=== PATIENT | female | born 1950 | race Caucasian/White ===

== ENCOUNTER 2021-02-16 12:30 | Outpatient (CLI) | payer MEDICARE, MEDICAID ==
[~2021-02-16] VITALS: Ht 154.9 cm; Wt 76.7 kg
[2021-02-16] MEDS ORDERED: ACET-1025 PO (13:27)
[2021-02-16] MEDS ORDERED: CALCIUM (13:27)
[2021-02-16] MEDS ORDERED: IBUP-24 PO (13:27)
[2021-02-16] MEDS ORDERED: MVI (13:27)
[2021-02-16] MEDS ORDERED: VITAMIN D3 (13:27)
[2021-02-16] MEDS ORDERED: OMEP-50 PO (13:27)
[2021-02-16] MEDS ORDERED: SIMV-42 PO (13:27)
[2021-02-16] MEDS ORDERED: METF-950 PO (13:27)
[2021-02-16] MEDS ORDERED: LOVA40TA2 PO (13:38)
[2021-02-16 14:34] LABS: BASOPHILS # (AUTO) 0.1 X10'3 (0-0.2); BASOPHILS % (AUTO) 0.9 % (0-1); EOSINOPHILS # (AUTO) 0.2 X10'3 (0-0.9); EOSINOPHILS % (AUTO) 2.2 % (0-6); LYMPHOCYTES # (AUTO) 2.9 X10'3 (1.1-4.8); LYMPHOCYTES % (AUTO) 38.9 % (21-51); MEAN CORPUSCULAR HEMOGLOBIN 29.7 PG (27.0-31.0); MEAN CORPUSCULAR HGB CONC 33.7 g/dL (33.0-36.5); MEAN CORPUSCULAR VOLUME 87.9 FL (78-98); MEAN PLATELET VOLUME 8.1 FL (7.4-10.4); MONOCYTES # (AUTO) 0.6 X10'3 (0-0.9); MONOCYTES % (AUTO) 8.6 % (2-12); NEUTROPHILS # (AUTO) 3.7 X10'3 (1.8-7.7); NEUTROPHILS % (AUTO) 49.4 % (42-75); PRE OP HEMOGLOBIN 12.8 g/dL (12.0-16.0); PRE OP PLATELET COUNT 289 X10'3 (140-440); RED BLOOD COUNT 4.32 X10'6 (4.20-5.60); RED CELL DISTRIBUTION WIDTH 14.5 % (11.5-14.5)
[2021-02-16 14:42] LABS: CLARITY,URINE CLEAR (Clear); COLOR,URINE YELLOW (Yellow); GLUCOSE, URINE NEGATIVE (Neg); KETONES,URINE NEGATIVE (Neg); LEUKOCYTE ESTERASE ,URINE TRACE (Neg); NITRITES, URINE NEGATIVE (Neg); OCCULT BLOOD,URINE TRACE-INTACT (Neg); PH,URINE 5.5 (4.8-8.0); PROTEIN,URINE NEGATIVE (Neg); UROBILINOGEN,URINE 0.2 E.U/dL (0.2-1.0)
[2021-02-16 14:43] LABS: UA COLLECTION TYPE CLN CATCH MIDSTREAM
[2021-02-16 14:50] LABS: BACTERIA,URINE FEW /HPF (Neg); MUCUS STRANDS FEW /LPF (Neg); RBC,URINE 0-2 /HPF (0-2); SQUAMOUS EPITHELIAL CELL,UR NONE SEEN /LPF (FEW)
[2021-02-16 14:51] LABS: ALBUMIN 3.8 G/DL (3.4-5.0); ALBUMIN/GLOBULIN RATIO 1.1 (1.1-1.5); ALKALINE PHOSPHATASE 47 IU/L (46-116); BLOOD UREA NITROGEN 11 MG/DL (7-18); CALCIUM 8.8 MG/DL (8.5-10.1); CHLORIDE 105 MMOL/L (99-107); CREATININE 0.92 MG/DL (0.40-0.90); PRE OP ALT 23 U/L (30-65); PRE OP ANION GAP 8 (8-16); PRE OP AST 23 U/L (10-37); PRE OP BILIRUB, TOTAL 0.3 MG/DL (0.0-1.0); PRE OP GLUCOSE 126 MG/DL (70-104); PRE OP POTASSIUM 3.5 MMOL/L (3.4-5.1); PRE OP SODIUM 140 MMOL/L (135-145); TOTAL CARBON DIOXIDE 26.7 MMOL/L (24-32); TOTAL PROTEIN 7.4 G/DL (6.4-8.2); eGFR 60 ML/MIN
[2021-02-16 15:05] LABS: HEMOGLOBIN A1C 5.9 % (4.5-6.2)
[2021-02-19] MEDS ORDERED: MULT-1085 PO (11:12)
[2021-02-19] MEDS ORDERED: CALC-336 PO (11:12)
[2021-02-19] MEDS ORDERED: CHOL20004 PO (11:12)
[2021-02-20] MEDS ORDERED: ringers solution, lacted 1,000 ML IV SCH (05:00)
[2021-02-20] MEDS ORDERED: oxyCODONE SR 10mg (sust. release) tab -2 tabs (20mg) PO ONE (05:30)
[2021-02-20] MEDS ORDERED: cefazolin/dext.iso 2gm/100ml IV ONE (05:30)
[2021-02-20] MEDS ORDERED: acetaminophen 325mg tablet PO ONE (05:30)
[2021-02-20] MEDS ORDERED: famotidine 20mg tablet PO ONE (05:30)
[2021-02-20] MEDS ORDERED: gabapentin 300mg capsule PO ONE (05:30)
[2021-02-20] MEDS ORDERED: celeCOXIB 100mg capsule PO ONE (05:30)
[2021-02-20] MEDS ORDERED: vancomycin 1,500 MG in NS 300ml IV soln IV ONE (05:30)
[2021-02-20] MEDS ORDERED: metoclopramide 5 mg/ml inj IV ONE (05:30)
[2021-02-20] MEDS ORDERED: TRANEXAMIC ACID 1 GM IN NACL,ISO-OS 100 ML IV ONE (06:00)
== END 2021-02-16 23:59 | disposition home or self-care (01) ==
LOC: PRE-OP 12:30 → EDSTATUS 02-20 10:00
PROVIDERS: ATTEND Orthopaedic Surgery
DX: Z01.818 Encounter for other preprocedural examination (principal); M16.11 Unilateral primary osteoarthritis, right hip; E11.9 Type 2 diabetes mellitus without complications; Z72.89 Other problems related to lifestyle; Z79.84 Long term (current) use of oral hypoglycemic drugs; Z79.899 Other long term (current) drug therapy; Z98.890 Other specified postprocedural states; Z90.49 Acquired absence of other specified parts of digestive tract; Z98.51 Tubal ligation status; Z87.442 Personal history of urinary calculi; Z88.8 Allergy status to other drugs, medicaments and biological substances
CPT/HCPCS: 36415; 80053; 81001; 83036; 85025; 86885; 86900; 86901; 87077; 87081; 87088; 87186; 93005; J3370; J7040; J7120

== ENCOUNTER 2024-11-05 13:43 | Emergency (ER) | payer MEDICARE, MEDICAID ==
[~2024-11-05] VITALS: Ht 154.9 cm; Wt 63.6 kg
[~2024-11-05 13:43] MED LIST: ALEN70TA60 PO; CALC-336 PO; CHOL20004 PO; LOVA40TA2 PO; METF-1203 PO; MULT-1085 PO; OMEP20CA16 PO
[2024-11-05 13:56] VITALS: BP 145/85; PULSE 79; RESP 18; O2SAT 96
[2024-11-05] MEDS ORDERED: AMOX500C2 PO (14:27)
[2024-11-05] MEDS: amoxicillin 250mg capsule PO ONE (14:42)
[2024-11-05 14:43] VITALS: TEMP 97.7
== END 2024-11-05 14:44 | disposition home or self-care (01) ==
LOC: ER 13:43
DX: H66.92 Otitis media, unspecified, left ear (principal); Z91.041 Radiographic dye allergy status; Z79.899 Other long term (current) drug therapy
CPT/HCPCS: 99283

== ENCOUNTER 2025-07-21 11:13 | Emergency (ER) | payer MEDICARE, MEDICAID ==
[~2025-07-21] VITALS: Ht 154.9 cm; Wt 71.0 kg
[2025-07-21 11:21] VITALS: BP 151/91; PULSE 82; RESP 16; TEMP 98.2; O2SAT 97
--- NOTE | 2025-07-21 14:02 | Physician Documentation ---
History of Present Illness ~ Chief Complaint: Ear Pain Stated Complaint: EAR PAIN Time Seen by MD: 11:50 HPI Very pleasant 74-year-old female that presents to the emergency department for evaluation of left-sided ear pain x2 days. Patient reports that she has had multiple episodes of ear infections over the last several years. Patient reports that this episode feels very much like her previous episodes of ear infections. Patient denies fever chills nausea vomiting diarrhea at this time. Denies any drainage from her ear currently although reports that she may have had some a couple of days ago. None noted here in the triage room in the emergency department. Patient denies headache vision changes vertigo lightheadedness hearing loss or any other symptoms at this time. Medication Reconciliation Allergies: Coded Allergies: iodine (Verified Allergy, Unknown, 07/21/25) Scheduled Alendronate Sodium* (Fosamax*), 1 TAB PO Q7D, (Reported) Calcium Carbonate (Calcium), 1 TAB PO Q12H, (Reported) Cholecalciferol (Vitamin D), 1 TAB PO BID, (Reported) Lovastatin (Lovastatin), 1 TAB PO DAILY, (Reported) Metformin HCl (Metformin HCl), 1 TAB PO DAILY, (Reported) Multivitamin (Multi Vitamin Daily), 1 TAB PO DAILY, (Reported) Omeprazole (Omeprazole), 1 CAP PO DAILY, (Reported) Review of Systems ROS As stated above in the HPI, otherwise all systems are reviewed and negative. Physical Exam Vital Signs: Temperature: 98.2, Source: Temporal, Heart Rate: 82, Respiratory Rate: 16, BP: 151/91, Pulse Oximetry: 97, Weight: 71.000 Oxygen Flow Rate: 0 Physical Exam VITALS: Reviewed and as above. GENERAL: Alert, no apparent distress. HEENT: Normocephalic, atraumatic, PERRL, EOMI, dry mucosa, mild tympanic membrane bulging noted erythema in the canal noted, consistent with acute otitis media on examination. RESPIRATORY: Lungs clear, normal breath sounds, no respiratory distress. CHEST: No accessory muscle use, no retractions CV: Regular rate, rhythm, no edema, no murmur, No: JVD GI: Soft, non-tender, bowels sounds present, no rebound, guarding, or rigidity BACK: No CVA tenderness, or swelling MUSCULOSKELETAL No deformities, no edema SKIN: Warm and dry, no rash NEURO: Oriented x4, No motor or sensory deficit PSYCH: Normal mood and affect, no agitation Progress Results/Orders Results/Orders Vital Signs 07/21/25 11:21 Temp 98.2 Pulse 82 Resp 16 B/P (MAP) 151/91 Pulse Ox 97 O2 Flow Rate 0 Medical Decision Making Additional information obtaine: other Findings MEDICAL DECISION MAKING Number of Diagnoses/Management Options: Moderate complexity. The patient is a 74-year-old female presenting with acute otitis media of the left ear, representing her fourth ear infection in the past couple of years. Diagnosis was established based on acute onset of significant ear pain for two days, with otoscopic examination revealing bulging and erythema of the tympanic membrane, consistent with diagnostic criteria for AOM. Amount and Complexity of Data: Limited. No laboratory or imaging studies were indicated for uncomplicated acute otitis media. The patient denies fever, chills, nausea, vomiting, diarrhea, and headache, making complications such as mastoiditis, meningitis, or intracranial abscess unlikely. Risk of Complications/Morbidity/Mortality: Moderate. The patient's recurrent AOM (4 episodes over the past couple of years) raises concern for underlying eustachian tube dysfunction or other predisposing factors. Given the frequency of infections (meeting criteria of 4 episodes in 1 year), the patient would be a candidate for consideration of tympanostomy tube placement. The possible need for referral to an superintendent general from her primary care provider was discussed with the patient for evaluation of recurrent disease and potential surgical intervention. Antibiotic Selection: Amoxicillin-clavulanate was selected as first-line therapy rather than amoxicillin alone. This decision was based on the patient's history of recurrent infections, which increases the likelihood of [id number] organisms such as Haemophilus influenzae and Moraxella catarrhalis. Amoxicillin-clavulanate provides coverage against these resistant pathogens while maintaining efficacy against Streptococcus pneumoniae, the most common causative organism. The patient will receive her first dose in the emergency department to ensure treatment initiation and assess for immediate adverse reactions. Plan: The patient is being discharged with a prescription for amoxicillin- clavulanate. She was counseled on the importance of completing the full antibiotic course and advised to follow up with her primary care provider within 48-72 hours if symptoms do not improve. Given her recurrent infections, she should discuss ENT referral with her primary care provider for evaluation and possible tympanostomy tube placement. The patient was instructed to return to the emergency department immediately if she develops fever, severe headache, neck stiffness, facial weakness, vertigo, or worsening symptoms, as these may indicate complications requiring urgent evaluation. Ear Diff. Dx: Considerations: Include: Abrasion, Cerumen impaction, Foreign body, Otitis externa, Barotrauma, Otitis media, Perforation, Referred pain- dental, Referred pain-pharyngitis, Referred pain-sinusitis, Referred pain-TMJ syn., Tympanic Membrane Injury, Other Eye Diff. Dx: Considerations: Include: Chalazoin, Conjuctivits-allergic, Conjuctivitis-bacterial, Conjuctivits-chlamydial, Conjuctivitis-viral, Corneal abrasion, Corneal laceration, Corneal ulceration, Foreign body-conjuctiva, Foreign body-corneal, Foreign body-intraocular, Foreign body-lid, Glaucoma, Globe rupture, Hordeolum, Iritis, Orbital cellulitis, Periobital cellulitis, Retinal artery occulsion, Retinal vein occlusion, Rust ring, Subconjunctival hem, Ultraviolet keratitis, Uveitis, Vitreous hemorrhage, Other Nose Diff. Dx: Considerations: Include: Abrasion, Anterior nasal bleed, Avulsion, Contusion, Coagulopathy, Fracture-nasal bone, Fracture-septum, Hypertension, Laceration, Other, Posterior nasal bleed, Retained foreign body, Septal hematoma Tooth Diff. Dx: Considerations: Include: Alveolar fracture, Aveolar osteitis, ANUG, Facial cellulitis, Periapical abscess, Periodontal abscess, Post-extra ction bleeding, Pulpitis, Trigeminal neuralgia, Tooth-avulsion, Tooth-eruption, Tooth-fracture, Tooth-subluxation, Other Throat Diff Dx: Considerations: Include: AIDS, Epiglottitis, Esophageal candidiasis, Hand foot mouth disease, Herpangina, Herpetic stomatitis, Herpes simplex, Infection mononucleosis, Immunodeficiency, Angus's angina, Peritonsillar abscess, Peritonsillar cellulitis, Pharyngitis-diphtheria, Pharyngitis-strepococcal, Pharyngitis-viral, Thrush, URI, Other Departure Disposition: 01 HOME / SELF CARE / HOMELESS Impression: Primary Impression: Acute otitis media Condition: Stable Discharge Instructions: Otitis Media, Adult Additional Instructions: Your Diagnosis You have been diagnosed with acute otitis media (an ear infection) in your left ear. This is an infection of the middle ear that has caused pain and inflammation. Your Medications You have been prescribed amoxicillin-clavulanate (Augmentin) to treat your ear infection. You received your first dose here in the emergency department. Take this antibiotic exactly as prescribed until all medication is finished, even if you start feeling better Complete the full course of antibiotics to ensure the infection is fully treated Common side effects may include upset stomach, nausea, or diarrhea If you develop a rash, hives, difficulty breathing, or severe diarrhea, stop the medication and seek medical attention immediately Pain Management Take acetaminophen (Tylenol) or ibuprofen (Advil, Motrin) as needed for ear pain Pain relief is an important part of treatment and should be used, especially in the first 24-48 hours Follow the dosing instructions on the medication bottle What to Expect Most symptoms should begin to improve within 48-72 hours of starting antibiotics Some fluid may remain in your ear for several weeks after the infection clears, which is normal Your hearing may seem slightly muffled during this time but should gradually return to normal Follow-Up Care Schedule an appointment with your primary care provider within 3-5 days to ensure your infection is improving Discuss with your primary care provider the need for referral to an ear, nose, and throat (ENT) specialist, as this is your fourth ear infection in the past couple of years Recurrent ear infections (3 or more in 6 months, or 4 or more in 1 year) may require evaluation by a specialist to determine if there is an underlying cause When to Return to the Emergency Department Seek immediate medical attention if you develop any of the following: Fever (temperature above 100.4F or 38C) Severe headache or stiff neck Worsening ear pain despite taking antibiotics for 48-72 hours Swelling, redness, or tenderness behind the ear Drainage of pus or blood from the ear Dizziness or loss of balance Facial weakness or drooping Confusion or difficulty staying awake Symptoms that do not improve after 2-3 days of antibiotics General Advice Get plenty of rest to help your body fight the infection Stay well hydrated Avoid getting water in your ear while bathing or showering until the infection has cleared Do not use cotton swabs or insert anything into your ear canal Questions? If you have any questions or concerns about your treatment, contact your primary care provider or return to the emergency department. Referrals: NO PRIMARY CARE PROVIDER (PCP) Prescriptions Amox Tr/Potassium Clavulanate 875/125 MG (Augmentin 875/125 MG) 875 Mg-125 Mg Tablet 1 TAB PO Q12H for 10 Days, #20 TAB Prov: CORY HOLMAN 07/21/25 Education Educated: Patient Educated regarding: diagnosis, treatment, need for follow up Signature Scribe Signature: A Attestation: Scribed for Cory Holman by ESTER Lorenzo . 07/21/25 14:05 CORY HOLMAN Jul 21, 2025 14:02
[2025-07-21] MEDS ORDERED: AMOX-580 PO (14:03)
[2025-07-21] MEDS: amox tr/potassium clavulanate 875/125mg TAB PO ONE (14:24)
== END 2025-07-21 14:28 | disposition home or self-care (01) ==
LOC: ER 11:14
DX: H66.92 Otitis media, unspecified, left ear (principal); Z79.899 Other long term (current) drug therapy
CPT/HCPCS: 99283